=== PATIENT | female | born 1950 | race Caucasian/White ===

== ENCOUNTER 2017-01-05 20:42 | Emergency (ER) | payer OTHER ==
[2017-01-05 21:03] LABS: BASOPHILS % 1.1 (0.0-1.5); EOSINOPHILS % 3.2 % (0.0-6.8); MEAN CORPUSCULAR HEMOGLOBIN 30.8 pg (28.0-34.0); MONOCYTES % 5.6 % (0.0-11.0); NEUTROPHILS # 3.3 # k/uL (1.4-7.7)
[2017-01-05 21:16] LABS: eGFR (African) > 60; eGFR (Non-African) > 60
--- NOTE | 2017-01-05 21:30 | ED Physician Documentation ---
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 has not had similar prior. some waxing and waning-reportedly mild-walks speaks w/o difficulty. 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 denies: unable to stand Cognition is Usually: alert, oriented x3 Gait is Usually: walks w/o assistance Associated Symptoms: none. 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 - later two normal children) Other History: hypertension (elevated tonight---pt thinks white coat syndrome) Surgeries/Procedures: other (laparoscopy) Allergies/Adverse Reactions: Allergies Allergy/AdvReac Type Severity Reaction Status Date / Time No Known Allergies Allergy Unverified 01/05/17 21:09 Home Medications: Ambulatory Orders Medication Instructions Recorded Levothyroxine Sodium [Synthroid] 50 mcg PO QDAY 01/05/17 - FAMILY HX Family History: no significant history - SOCIAL HX Smoking History: non-smoker Alcohol Use: rarely Drug Use: none - VITAL SIGNS Vital Signs: Vital Signs Temp Pulse Resp BP Pulse Ox 98.3 F 83 18 196/101 98 01/05/17 20:42 01/05/17 20:42 01/05/17 20:42 01/05/17 20:42 01/05/17 20:42 - REVIEWED ASSESSMENTS Nursing Assessment Reviewed: Yes Vitals Reviewed: Yes ED Results Lab/Radiology - Lab Results Lab Results: Lab Results 01/05/17 01/05/17 01/05/17 20:57 20:57 20:57 WBC 5.80 K/ul K/ul (4.00-12.00) RBC 4.19 M/ul M/ul (3.90-5.20) Hgb 12.9 g/dL g/dL (12.0-16.0) Hct 38.6 % % (34.5-46.5) MCV 92.0 fl fl (80.0-100.0) MCH 30.8 pg pg (28.0-34.0) MCHC 33.4 g/dL g/dL (30.0-36.0) RDW 13.1 % % (11.3-14.3) Plt Count 226 K/mm3 K/mm3 (130-400) Neut % (Auto) 56.6 % % (39.0-79.0) Lymph % (Auto) 31.5 % % (16.0-50.0) Boyle % (Auto) 5.6 % % (0.0-11.0) Eos % (Auto) 3.2 % % (0.0-6.8) Baso % (Auto) 1.1 (0.0-1.5) Neut # (Auto) 3.3 # k/uL # k/uL (1.4-7.7) Lymph # (Auto) 1.8 # k/uL # k/uL (0.6-4.0) Boyle # (Auto) 0.3 # k/uL # k/uL (0.0-0.9) Eos # (Auto) 0.2 # k/uL # k/uL (0.0-0.6) Baso # (Auto) 0.1 # k/uL # k/uL (0.0-0.5) Reactive Lymphs % 1.9 % % (0.0-5.0) Reactive Lymphs # 0.1 # k/uL # k/uL (0.0-0.8) PT 10.5 Seconds Seconds (9.4-11.6) INR 1.00 (0.9-1.2) APTT 25.6 Seconds Seconds (24.5-32.8) Sodium 142 mmol/L mmol/L (136-145) Potassium 3.3 mmol/L L mmol/L (3.5-5.0) Chloride 105 mmol/L mmol/L (98-110) Carbon Dioxide 31 mmol/L mmol/L (20-32) BUN 12 mg/dL mg/dL (10-26) Creatinine 0.6 mg/dL mg/dL (0.4-1.5) Estimated Creat Clear 97 Est GFR ( Amer) > 60 (60 - ) Est GFR (Non-Af Amer) > 60 (60 - ) Glucose 88 mg/dL mg/dL (70-99) Calcium 10.0 mg/dL mg/dL (8.5-10.5) Total Bilirubin 0.5 mg/dL mg/dL (0.2-1.2) AST 20 U/L U/L (0-41) ALT 17 U/L U/L (0-45) Alkaline Phosphatase 56 U/L U/L (46-116) Creatine Kinase 142 U/L U/L (0-225) Total Protein 7.9 g/dL g/dL (6.0-8.5) Albumin 5.0 g/dL g/dL (3.0-5.5) - Orders Orders: ED Orders Category Date Time Status CT BRAIN W/O CONTRAST Stat Exams 01/05/17 Completed CBC/PLATELET/DIFF Routine Lab 01/05/17 20:57 Completed CMP Routine Lab 01/05/17 20:57 Completed CREATINE KINASE Routine Lab 01/05/17 20:57 Completed PT-INR Routine Lab 01/05/17 20:57 Completed PTT Routine Lab 01/05/17 20:57 Completed Chem Sticks Med 01/06/17 20:50 Once 1 each NOW ONE Oxygen Daily Oxygen 01/05/17 21:00 Ordered EKG WITH COMPARISON Stat Ther 01/05/17 Ordered Neuro Symptoms Physical Exam - Physical Exam General Appearance: mild distress. No: anxious, lethargic HEENT: no apparent trauma, EOM's intact, PERRL, pharynx nml, airway intact, oral exam nml. No: scleral icterus, pale conjunctivae, poor handling of secretion, pharyngeal erythema, pharyngeal exudate Neuro/Psych: alert, oriented x3, no evidence of acute CVA, mood/affect nml, other (n o motor deficit mild sensory deficit asim lt arm). No: abnml respond to command Pheripheral Exam: motor nml. No: sensation nml Neck: normal inspection, thyroid normal, supple Respiratory: no resp distress, chest non-tender, breath sounds normal CVS: reg rate & rhythm, heart sounds normal Abdomen: non-tender Skin: color nml, no rash. No: cyanosis, diaphoresis, pallor, ecchymosis Extremities: non-tender, normal range of motion, no evidence of injury, no edema Discharge Clincal Impression: lt sided numbness udo, hypertension, mild hypothryoidism Referrals: Primary Doctor,No [Primary Care Provider] - 2 Days Home Medications: Ambulatory Orders Levothyroxine Sodium [Synthroid] 50 mcg PO QDAY 01/05/17 Condition: Fair Disposition: 02 XFER SHT-TRM HOSP Decision to Admit: [id number] Decision Time: 22:04
--- NOTE | 2017-01-05 21:33 | Diagnostic Imaging Report ---
SATHISH AMARO [facility] [address] [facility].[address] [address] Report Submission Date: Jan 05, 2017 9:31:02 PM CDT Patient Study Name: QUAN SMITH Date: Jan 05, 2017 9:09:40 PM CDT Modality Type: CT\SR Gender: F Description: CT BRAIN W/O CONTRAST : 50 Institution: [facility] Physician: SATHISH AMARO Computed tomography of the head without contrast History: Left-sided numbness and weakness Findings: Transverse of brain sections are obtained without contrast revealing normal-sized ventricles and sulci given patient age. Tanner white differentiation is intact. There is no intracranial hemorrhage. The skull is intact. Visualized sinuses and mastoid air cells are clear. Impression: Normal. Electronically signed on Jan 05, 2017 9:31:02 PM CDT by: Satya FARRELL
[2017-01-05 22:14] VITALS: BP 165/92
[2017-01-06 07:03] LABS: APPEARANCE,URINE CLEAR (CLEAR); COLOR,URINE YELLOW (YELLOW); OCCULT BLOOD,URINE TRACE-INTACT (NEGATIVE); UROBILINOGEN URINE 0.2 Eu (0.2-1.0)
== END 2017-01-05 22:06 | disposition short-term general hospital (02) ==
LOC: ED 20:42
DX: R20.0 Anesthesia of skin (principal); I10 Essential (primary) hypertension; E03.9 Hypothyroidism, unspecified
CPT/HCPCS: 70450; 80053; 81002; 82550; 85025; 85610; 85730; 99284